=== PATIENT | female | born 1955 | race Caucasian/White ===

== ENCOUNTER → 2017-04-24 | Outpatient (CLI) | payer OTHER ==
[~2017-04-24] MED LIST: ASCO-96 PO; ASPI-621 PO; CHOL200024 PO; HAWT150C PO; IBUP-1484 PO; LEVO50TA5 SL; MAGNESIUM PO; MELA5TAB19 PO; RED600CA2 PO; VITA100C8 PO; VITAMIN B12 SC; [UNRECOGNIZED DRUG - OTHER] PO; [UNRECOGNIZED DRUG - OTHER] PO; [UNRECOGNIZED DRUG - REMARK] PO
== END | disposition home or self-care (01) ==
LOC: STAR 09:50
PROVIDERS: ATTEND Surgery
DX: Z01.818 Encounter for other preprocedural examination (principal); I51.7 Cardiomegaly; M85.88 Other specified disorders of bone density and structure, other site
CPT/HCPCS: 93005

== ENCOUNTER 2017-04-30 07:44 | Inpatient (IN) | payer OTHER ==
[2017-04-24 10:17] VITALS: BP 142/84
[~2017-04-30] VITALS: Ht 167.6 cm; Wt 70.3 kg
[2017-04-30] MEDS ORDERED: LACTATED RINGERS 1,000 ML IV SCH ×2 (08:19→14:30)
[2017-04-30] MEDS ORDERED: ACET-1600 PO (08:24)
[2017-04-30] MEDS ORDERED: MIDAZOLAM 1 MG/ML, 2ML ONE (09:01)
[2017-04-30] MEDS ORDERED: FENTANYL PF 100 MCG/2ML ONE ×4 (09:01→12:42)
[2017-04-30] MEDS ORDERED: DEXAMETHASONE 4 MG/ML, 1ML ONE (10:14)
[2017-04-30] MEDS ORDERED: PROPOFOL 10 MG/ML, 20ML ONE (10:14)
[2017-04-30] MEDS ORDERED: ONDANSETRON 2MG/ML, 2ML ONE (10:14)
[2017-04-30] MEDS ORDERED: SUCCINYLCHOLINE 20 MG/ML, 10ML ONE (10:14)
[2017-04-30] MEDS ORDERED: PROMETHAZINE 25 MG/ML, 1ML IV PRN (11:00)
[2017-04-30] MEDS ORDERED: MEPERIDINE/PF 25MG/0.5ML IVPush PRN (11:00)
[2017-04-30] MEDS ORDERED: FENTANYL PF 100 MCG/2ML IV PRN (11:00)
[2017-04-30] MEDS ORDERED: ACETAMINOPHEN 325 MG TABLET PO PRN (11:00)
[2017-04-30] MEDS ORDERED: ONDANSETRON 2MG/ML, 2ML IVPush PRN (11:00)
[2017-04-30] MEDS ORDERED: HYDROmorphone 1 MG/ML, 1ML IV PRN (11:00)
[2017-04-30] MEDS ORDERED: EPHEDRINE 50 MG/ML, 1ML IVPush PRN (11:00)
[2017-04-30] MEDS ORDERED: MIDAZOLAM 1 MG/ML, 2ML IV PRN (11:00)
[2017-04-30] MEDS ORDERED: OXYcodone 5 MG/5 ML ORAL.SOL UDC PO PRN (11:00)
[2017-04-30 11:20] LABS: IOPTH BASELINE 129 pg/mL
[2017-04-30 12:22] LABS: SAMPLE 5 %DROP IOPTH 90 %; SAMPLE 6 %DROP IOPTH 94 %
[2017-04-30] MEDS ORDERED: OXYcodone 5 MG/5 ML ORAL.SOL UDC ONE (12:27)
[2017-04-30] MEDS ORDERED: ACETAMINOPHEN 650 MG/20.3 ML UDC ONE (12:27)
[2017-04-30 14:12] VITALS: BP 136/73
[2017-04-30] MEDS: HYDROcodone/APAP 5/325 TABLET PO PRN ×3 (14:14→22:14)
[2017-04-30] MEDS ORDERED: [UNRECOGNIZED DRUG - OTHER] MC SCH (14:30)
[2017-04-30] MEDS ORDERED: MELATONIN 5 MG TABLET PO PRN (14:30)
[2017-04-30] MEDS ORDERED: VITAMIN B12 MC SCH (14:30)
[2017-04-30] MEDS ORDERED: ONDANSETRON 2MG/ML, 2ML IV PRN (14:30)
[2017-04-30] MEDS ORDERED: morphine SULFATE 10 MG/ML, 1ML IV PRN (14:30)
[2017-04-30] MEDS: CALCIUM CARBONATE 500 MG TAB.CHEW PO SCH (17:07)
[2017-04-30 19:24] VITALS: BP 150/60
[2017-04-30] MEDS: IBUPROFEN 200 MG TABLET PO PRN (22:14)
[2017-04-30 23:31] VITALS: BP 131/74
[2017-05-01 02:54] VITALS: BP 126/67
[2017-05-01] MEDS: HYDROcodone/APAP 5/325 TABLET PO PRN (03:22)
[2017-05-01] MEDS ORDERED: ASPIRIN 81 MG TABLET EC PO SCH (06:00)
[2017-05-01] MEDS ORDERED: LEVOTHYROXINE 50 MCG TABLET PO SCH (06:00)
[2017-05-01 08:00] VITALS: BP 114/61
[2017-05-01] MEDS ORDERED: VITAMIN E 400 UNITS CAPSULE PO SCH (09:00)
[2017-05-01] MEDS ORDERED: CHOLECALCIFEROL 1,000 UNIT TABLET PO SCH (09:00)
[2017-05-01] MEDS: CALCIUM CARBONATE 500 MG TAB.CHEW PO SCH (09:05)
[2017-05-01] MEDS: IBUPROFEN 200 MG TABLET PO PRN (09:05)
[2017-05-01] MEDS ORDERED: CALC200T3 PO (09:41)
[2017-05-01] MEDS ORDERED: HYDR-3240 PO (10:57)
[2017-05-02] MEDS ORDERED: MAGNESIUM OXIDE 400 MG TABLET PO SCH (09:00)
== END 2017-05-01 11:14 | disposition home or self-care (01) | DRG 627 ==
LOC: OUT 07:44 → 4NOR 13:14 → OUT 13:54 → DCLOUNGE 05-01 10:51
PROVIDERS: ADMIT Surgery; ATTEND Surgery
PROC: 0GBL0ZZ Excision of Right Superior Parathyroid Gland, Open Approach (ICD-10-PCS; 2017-04-30)
PROC: 0GBM0ZZ Excision of Left Superior Parathyroid Gland, Open Approach (ICD-10-PCS; 2017-04-30)
PROC: 0GBP0ZZ Excision of Left Inferior Parathyroid Gland, Open Approach (ICD-10-PCS; principal; 2017-04-30 10:00)
DX: E21.0 Primary hyperparathyroidism (principal); K59.00 Constipation, unspecified; M19.90 Unspecified osteoarthritis, unspecified site; M85.80 Other specified disorders of bone density and structure, unspecified site; Z80.9 Family history of malignant neoplasm, unspecified; Z82.49 Family history of ischemic heart disease and other diseases of the circulatory system; Z83.3 Family history of diabetes mellitus
CPT/HCPCS: 36415; 82040; 82310; 83970; 88305; 88331; J1100; J2250; J2405; J2704; J3010; C1760; J0330; J7120